=== PATIENT | male | born 1980 | race Two or more races ===

== ENCOUNTER 2017-06-19 19:00 | Emergency (ER) | payer OTHER ==
[2017-06-19 19:08] VITALS: BP 109/97; PULSE 105; RESP 18; TEMP 98.6; O2SAT 97
--- NOTE | 2017-06-19 19:20 | EDPHY ---
H & P Time Seen by Provider: 06/19/17 19:11 HPI/ROS: CHIEF COMPLAINT: Left ankle pain HISTORY OF PRESENT ILLNESS: Patient injured his left ankle at work this past Friday 4 days ago when he pulled a garbage can and hit him in the Achilles area on the left posterior ankle. He is still able to walk but the pain has not gone away and is moderate. REVIEW OF SYSTEMS: No other injuries. No skin laceration. PAST MEDICAL HISTORY: Negative Social history: EVS at [facility] General Appearance: Alert and conversant, cooperative. Patient has some tenderness in the lower Achilles where the attachment to the calcaneus. Sigala test is negative, no evidence of Achilles tendon complete rupture. No bony tenderness and normal dorsiflexion and plantar flexion of the foot. No bony tenderness in the tibia fibula or the foot. Skin is normal without redness or warmth or blisters or lymphangitis. Emergency Department course/MDM: Patient is a contusion of his posterior ankle in the area of the Achilles. I advised him to take the rest of today off. Tomorrow is his day off and he can follow up with work comp tomorrow. Ice, nonsteroidals or [id number] anti-inflammatories as needed. Smoking Status: Never smoked Constitutional: Initial Vital Signs Temperature (C) 37.0 C 06/19/17 19:02 Heart Rate 105 H 06/19/17 19:02 Respiratory Rate 18 06/19/17 19:02 Blood Pressure 109/97 H 06/19/17 19:02 O2 Sat (%) 97 06/19/17 19:02 O2 Delivery Mode Room Air Allergies/Adverse Reactions: No Known Allergies Allergy (Unverified 06/19/17 19:07) Home Medications: Medication Instructions Recorded NK [No Known Home Meds] 06/19/17 MDM/Departure - Depart Disposition: Home, Routine, Self-Care Clinical Impression: Left achilles contusion Condition: Good Instructions: Contusion in Adults (ED) Additional Instructions: Take the remainder of your shift off today. Follow-up at [facility] work comp provider tomorrow for re-evaluation for full duty. Stand Alone Forms: Work Limited Duty Referrals: Work Comp Ref/Restrictions [Outside] - As per Instructions
== END 2017-06-19 19:38 | disposition home or self-care (01) ==
DX: S90.02XA Contusion of left ankle, initial encounter (principal); W22.8XXA Striking against or struck by other objects, initial encounter; Y92.69 Other specified industrial and construction area as the place of occurrence of the external cause; Y99.0 Civilian activity done for income or pay; Y93.89 Activity, other specified